=== PATIENT | female | born 1965 | race Caucasian/White ===

== ENCOUNTER 2017-06-06 20:08 | Emergency (ER) | payer OTHER ==
[2015-10-19 13:28] VITALS: BMI 28.3
[~2017-06-06 20:08] MED LIST: AMBIEN CR12.5 MG/BO PO; AMOXICILLIN500 M1 PO; ATIVAN0.5 MG PO; CARAFATE1 G PO; CYCLOBENZAPRINE10 MG PO; HALOPERIDOL1 MG PO; HYDROCODON-ACE1 EAC7 PO; JANUMET XR 1001 EACH PO; K-DUR20 MEQ PO; KEPPRA250 MG PO; LANTUS SOL100 UNIT/1 SC; METOPROLOL TART50 MG PO; MORPHINE SULFAT30 MG PO; MORPHINE SULFAT60 M5 PO; PROTONIX40 MG PO; XANAX2 MG PO; ZESTRIL20 MG PO
[2017-06-06 21:24] LABS: APPEARANCE CLEAR (CLEAR); BILIRUBIN NEGATIVE (NEGATIVE); COLOR YELLOW (YELLOW); GLUCOSE NEGATIVE (NEGATIVE); KETONE NEGATIVE (NEGATIVE); NITRITE NEGATIVE (NEGATIVE); PROTEIN NEGATIVE (NEGATIVE); UROBILINOGEN NORMAL (NORMAL)
[2017-06-06 21:31] LABS: BACTERIA FEW /hpf (NONE SEEN); EPITHELIAL CELLS 0-5 /hpf (0-5)
[2017-06-06 21:32] LABS: RED CELLS - URINE 0-5 /hpf (0-5)
[2017-06-06 21:36] LABS: BASOPHILS 0.5 % (0-2); EOSINOPHILS 4.6 % (0-7); HEMATOCRIT 36.4 % (36.0-48.0); HEMOGLOBIN 12.5 g/dL (12-16); IMMATURE GRANULOCYTES 0.2 % (0-5); LYMPHOCYTES 41.9 % (15-50); MCH 29.1 pg (26.0-34.0); MCHC 34.3 g/dL (31.0-37.0); MCV 84.8 fL (80.0-100.0); MEAN PLATELET VOLUME 9.8 fL (7.4-10.4); MONOCYTES 7.7 % (2-11); NEUTROPHILS 45.1 % (40-80); PLATELET COUNT 192 10x3/uL (130-400); RBC 4.29 10x6/uL (4.00-5.40); RDW 12.4 % (11.5-14.5); WBC 4.2 10x3/uL (4.8-10.8)
[2017-06-06 22:01] LABS: ALBUMIN 3.7 g/dL (3.4-5.0); ALKALINE PHOSPHATASE 136 U/L (46-116); ALT (SGPT) 54 U/L (10-68); AMYLASE - SERUM 25 U/L (25-115); BILIRUBIN - TOTAL 0.26 mg/dL (0.2-1.3); CALC OSMOLALITY 274 mosm/kg (275-300); CARBON DIOXIDE 31.2 mmol/L (21.0-32.0); CHLORIDE - SERUM 101 mmol/L (98-107); CREATININE - SERUM 0.8 mg/dL (0.6-1.3); LIPASE 85 U/L (73-393); POTASSIUM - SERUM 4.4 mmol/L (3.5-5.1); PROTEIN - SERUM 6.9 g/dL (6.4-8.2); SODIUM 138 mmol/L (136-145); UREA NITROGEN 9 mg/dL (7-18); eGFR NON AFRICAN AMERICAN 80 mL/min (90-120)
[2017-06-06 22:02] LABS: GLUCOSE 97 mg/dL (74-106)
[2017-06-19] MEDS ORDERED: CYCLOBENZAPRINE10 MG PO (13:08)
[2017-06-19] MEDS ORDERED: OXYCODONE HCL E20 MG PO (13:08)
[2017-06-19] MEDS ORDERED: PROPRANOLOL HCL20 MG PO (13:10)
[2017-06-19] MEDS ORDERED: XANAX2 MG PO (13:10)
[2017-06-19] MEDS ORDERED: ZANTAC300 MG PO (13:11)
[2017-06-19] MEDS ORDERED: OMEPRAZOLE20 M1 PO (13:11)
[2017-06-19] MEDS ORDERED: NOVOLOG100 U/M1 SC (13:12)
[2017-06-19] MEDS ORDERED: AMITRIPTYLINE100 MG PO (13:14)
== END 2017-06-06 23:12 | disposition home or self-care (01) ==
LOC: D.ER 20:08
PROVIDERS: Family Medicine
DX: K59.00 Constipation, unspecified (principal); N39.0 Urinary tract infection, site not specified; S29.012A Strain of muscle and tendon of back wall of thorax, initial encounter; X58.XXXA Exposure to other specified factors, initial encounter; Y93.89 Activity, other specified; Y92.019 Unspecified place in single-family (private) house as the place of occurrence of the external cause; E11.9 Type 2 diabetes mellitus without complications

== ENCOUNTER 2017-06-20 08:51 | Day surgery (SDC) | payer OTHER ==
[~2017-06-20] VITALS: Ht 154.9 cm; Wt 67.1 kg
--- NOTE | ~2017-06-20 | OP ---
PATIENT NAME: CLOVIS FRANCIS MEDICAL RECORD: [id number] :63 LOCATION:DDagobertoOPS ADMISSION DATE: SURGEON: ELMER HAWKINS MD DATE OF OPERATION: 06/20/2017 PREOPERATIVE DIAGNOSES: 1. Gallstones. 2. Diabetes mellitus. 3. Fibromyalgia. 4. Chronic pain syndrome. POSTOPERATIVE DIAGNOSES: 1. Gallstones. 2. Diabetes mellitus. 3. Fibromyalgia. 4. Chronic pain syndrome. PROCEDURE: Laparoscopic cholecystectomy. SURGEON: Elmer Hawkins MD REPORT OF PROCEDURE: The patient's abdomen was prepped and draped in sterile fashion. A skin incision was made just above the umbilicus. Electrocautery was used to dissect through the subcutaneous tissues and #0 Vicryls were placed on the fascia bilaterally. The fascia was incised with #15 blade and I bluntly entered the peritoneal cavity. A 12-mm Kemi port was inserted and the abdomen was insufflated. Under direct visualization, a 5-mm trocar was placed in the epigastrium and two more 5-mm trocars were placed in the right subcostal region. The gallbladder was grasped and elevated. There was no sign of any inflammatory changes. The cystic artery and cystic duct were dissected free and these were clipped proximally and distally and ligated in standard fashion. The gallbladder was taken off the liver bed using electrocautery and placed into the right upper quadrant. Any bleeding from the liver bed was then treated with electrocautery. We irrigated out the right upper quadrant and then a Chaparro-Cut liver biopsy tool was used to perform liver biopsies of the right lobe of liver times 4. Any bleeding from these biopsy sites were then treated with electrocautery until completed. At this point, the ports and insufflation were then removed and the gallbladder was taken out through the umbilicus. The umbilical fascia was closed with interrupted #0 Vicryls times 3. The wounds were then irrigated out with normal saline and infused with 10 mL of 0.25% Marcaine with epinephrine. The skin incisions were all closed with subcutaneous 5-0 Monocryl and dressed appropriately. COMPLICATIONS: None. CONDITION: Stable. ANESTHESIA: General endotracheal and local. BLOOD LOSS: Minimal. TRANSINT:[id number] Voice Confirmation ID: [id number] DOCUMENT ID: [id number] OPERATIVE REPORT [id number] GREEN,CLOVIS ERLINELMER KERR MD at 1413 CC: JAYMIE REBOLLEDO MD [id number] DICTATION DATE: 06/20/17 1233 SHIPPING WEIGHER: 06/20/17 1308 [facility] 06/20/17 [facility] [address] [place] [address]
[~2017-06-20 08:51] MED LIST changes: +AMITRIPTYLINE100 MG PO; +NOVOLOG100 U/M1 SC; +OMEPRAZOLE20 M1 PO; +OXYCODONE HCL E20 MG PO; +PROPRANOLOL HCL20 MG PO; +ZANTAC300 MG PO
[2017-06-20 10:27] LABS: BASOPHILS 0.6 % (0-2); EOSINOPHILS 6.6 % (0-7); HEMATOCRIT 35.5 % (36.0-48.0); HEMOGLOBIN 12.4 g/dL (12-16); IMMATURE GRANULOCYTES 1.3 % (0-5); MCH 29.2 pg (26.0-34.0); MCHC 34.9 g/dL (31.0-37.0); MCV 83.7 fL (80.0-100.0); MONOCYTES 4.1 % (2-11); NEUTROPHILS 60.4 % (40-80); RBC 4.24 10x6/uL (4.00-5.40); RDW 12.6 % (11.5-14.5)
[2017-06-20 10:28] LABS: ALBUMIN 3.8 g/dL (3.4-5.0); ALKALINE PHOSPHATASE 146 U/L (46-116); ALT (SGPT) 53 U/L (10-68); BILIRUBIN - TOTAL 0.48 mg/dL (0.2-1.3); CALC OSMOLALITY 276 mosm/kg (275-300); CALCIUM 9.3 mg/dL (8.5-10.1); CARBON DIOXIDE 26.3 mmol/L (21.0-32.0); CHLORIDE - SERUM 99 mmol/L (98-107); CREATININE - SERUM 0.8 mg/dL (0.6-1.3); PLATELET COUNT 316 10x3/uL (130-400); POTASSIUM - SERUM 4.2 mmol/L (3.5-5.1); PROTEIN - SERUM 7.3 g/dL (6.4-8.2); SODIUM 137 mmol/L (136-145); UREA NITROGEN 11 mg/dL (7-18); eGFR NON AFRICAN AMERICAN 80 mL/min (90-120)
[2017-06-20 10:30] LABS: GLUCOSE 164 mg/dL (74-106)
[2017-06-20 10:37] VITALS: BP 145/100; Ht 154.9 cm; Wt 67.1 kg
== END 2017-06-20 14:10 | disposition home or self-care (01) ==
LOC: D.OPS 08:51 → D.PAN 11:30 → D.OPS 11:30
PROVIDERS: Surgery
DX: K80.20 Calculus of gallbladder without cholecystitis without obstruction (principal); E11.9 Type 2 diabetes mellitus without complications; M79.7 Fibromyalgia; G89.4 Chronic pain syndrome; Z01.812 Encounter for preprocedural laboratory examination

== ENCOUNTER 2017-06-21 17:41 | Observation (INO) | payer OTHER ==
[~2017-06-21] VITALS: Ht 154.9 cm; Wt 65.9 kg
--- NOTE | ~2017-06-21 | DS ---
PATIENT:CLOVIS FRANCIS :63 MEDICAL RECORD: [id number] DISCHARGE SUMMARY ADMISSION DATE: 06/21/17 DISCHARGE DATE: 06/23/17 PRINCIPAL DIAGNOSES: 1. Postoperative pain. 2. Constipation. 3. Anxiety. 4. Depression. 5. Hypertension. 6. Diabetes. HOSPITAL COURSE: The patient was admitted through the Emergency Room with abdominal pain. CT scan was a pretty normal CT scan post-cholecystectomy. The patient states that she could not breathe. She states it hurts too much to breathe. When I saw her, her breathing was nonlabored. I think that her problems were more anxiety related and related to the incisional pain. She was placed on IV narcotic analgesia. On the final day, she was sleeping and so it is obvious that her pain was improved. She is being dismissed home. She can follow up with her surgeon, Dr. Hawkins in 2 weeks. TRANSINT:[id number] Voice Confirmation ID: [id number] DOCUMENT ID: [id number] WADE BANEGAS MD at 1042 CC: LOBO HAWKINS [id number] DICTATION DATE: 06/23/17 1150 SAP DIRECTOR: 06/24/17 0648 DIS IN 06/23/17 [id number] [place] [address]
--- NOTE | ~2017-06-21 | HP ---
PATIENT: CLOVIS FRANCIS MEDICAL RECORD: [id number] ACCOUNT: [id number] LOCATION:D.MS Hewitt : 63 ADMISSION DATE: 06/21/17 HISTORY AND PHYSICAL EXAMINATION CHIEF COMPLAINT: Pain. HISTORY OF PRESENT ILLNESS: The patient had me paged. She states that she could not breath and that the pain was intolerable. I asked her that she go to the Emergency Room. She underwent a CT scan. It revealed constipation and other findings consistent with a recent laparoscopic cholecystectomy. The entire examination was performed with the presence of a female nurse. Palpation of the abdomen aggravates. Nothing alleviates. The patient is very anxious. She states that the Dilaudid is not controlling her pain. I think that anxiety is as much been an issue in this case as incisional pain. I told her, I placed her on a Dilaudid HYDROELECTRIC COMPONENT MACHINIST overnight and that we could plan on sending her home tomorrow. She agreed to this. This is a history and physical addendum.For the typed portion of the history and physical, please see the chart. This will include the past medical and surgical history, current medications, allergies, social history as well as family history. PHYSICAL EXAMINATION: GENERAL: The patient appears chronically ill. Also appears acutely ill. The entire physical examination was performed in the presence of a female nurse. EARS: External ears appear normal. EYES: Extraocular movements are intact. NECK: Trachea is midline. CHEST: No intercostal retractions. PULMONARY: Nonlabored. INTEGUMENT: She has no splinting. ABDOMEN: Diffusely tender, greatest around the incisions where there is minimal amount of bruising. BACK: No thoracic kyphosis. PSYCHIATRIC: Very anxious. IMPRESSION: 1. Anxiety. 2. Incisional pain after laparoscopic cholecystectomy. 3. Constipation on the CT scan. She has had 2 bowel movements today. One was small and one was large. PLAN: Dilaudid HYDROELECTRIC COMPONENT MACHINIST. Regular diet. I am planning for dismissal home tomorrow. I will restart her home medicines including anxiety medications. TRANSINT:[id number] Voice Confirmation ID: [id number] DOCUMENT ID: [id number] HISTORY AND PHYSICAL [id number] PENNYCAROLYNCLOVIS WADE RAVI MD at 1042 CC: LOBO HAWKINS [phone] DICTATION DATE: 06/22/171915 PERIODICALS CLERK: 06/22/171932 DIS IN 06/23/17 [facility] [address] [id number]
[2017-06-21 21:28] LABS: BASOPHILS 0.3 % (0-2); EOSINOPHILS 7.3 % (0-7); HEMATOCRIT 33.3 % (36.0-48.0); HEMOGLOBIN 11.5 g/dL (12-16); IMMATURE GRANULOCYTES 0.5 % (0-5); LYMPHOCYTES 28.1 % (15-50); MCH 29.2 pg (26.0-34.0); MCHC 34.5 g/dL (31.0-37.0); MCV 84.5 fL (80.0-100.0); MEAN PLATELET VOLUME 9.5 fL (7.4-10.4); MONOCYTES 7.5 % (2-11); NEUTROPHILS 56.3 % (40-80); RBC 3.94 10x6/uL (4.00-5.40); RDW 13.1 % (11.5-14.5)
[2017-06-21 21:33] LABS: PLATELET COUNT 236 10x3/uL (130-400)
[2017-06-21 22:05] LABS: ALBUMIN 3.1 g/dL (3.4-5.0); ALKALINE PHOSPHATASE 228 U/L (46-116); ALT (SGPT) 307 U/L (10-68); CALC OSMOLALITY 275 mosm/kg (275-300); CALCIUM 7.9 mg/dL (8.5-10.1); CARBON DIOXIDE 24.7 mmol/L (21.0-32.0); CHLORIDE - SERUM 96 mmol/L (98-107); CREATININE - SERUM 0.6 mg/dL (0.6-1.3); GLUCOSE 242 mg/dL (74-106); POTASSIUM - SERUM 3.8 mmol/L (3.5-5.1); PROTEIN - SERUM 6.3 g/dL (6.4-8.2); SODIUM 135 mmol/L (136-145); UREA NITROGEN 6 mg/dL (7-18); eGFR NON AFRICAN AMERICAN > 90 mL/min (90-120)
[2017-06-22] VITALS (7 sets, daily range): BP systolic 138–179; BP diastolic 78–115; Ht 154.9 cm; Wt 65.9 kg
[2017-06-22 05:04] LABS: BASOPHILS 0.5 % (0-2); EOSINOPHILS 8.6 % (0-7); HEMATOCRIT 32.7 % (36.0-48.0); HEMOGLOBIN 11.1 g/dL (12-16); IMMATURE GRANULOCYTES 0.3 % (0-5); MCH 29.1 pg (26.0-34.0); MCHC 33.9 g/dL (31.0-37.0); MCV 85.6 fL (80.0-100.0); MEAN PLATELET VOLUME 9.7 fL (7.4-10.4); MONOCYTES 6.3 % (2-11); NEUTROPHILS 55.3 % (40-80); PLATELET COUNT 236 10x3/uL (130-400); RBC 3.82 10x6/uL (4.00-5.40); RDW 13.3 % (11.5-14.5); WBC 6.3 10x3/uL (4.8-10.8)
[2017-06-22 05:28] LABS: ALKALINE PHOSPHATASE 229 U/L (46-116); ALT (SGPT) 269 U/L (10-68); CALCIUM 8.6 mg/dL (8.5-10.1); CARBON DIOXIDE 29.4 mmol/L (21.0-32.0); CHLORIDE - SERUM 100 mmol/L (98-107); CREATININE - SERUM 0.6 mg/dL (0.6-1.3); POTASSIUM - SERUM 3.7 mmol/L (3.5-5.1); PROTEIN - SERUM 6.1 g/dL (6.4-8.2); SODIUM 138 mmol/L (136-145); eGFR NON AFRICAN AMERICAN > 90 mL/min (90-120)
[2017-06-22 05:30] LABS: CALC OSMOLALITY 277 mosm/kg (275-300); GLUCOSE 184 mg/dL (74-106); UREA NITROGEN 4 mg/dL (7-18)
[2017-06-23 05:29] VITALS: BP 159/87
[2017-06-23 08:00] VITALS: BP 162/88
[2017-06-23 11:30] VITALS: BP 160/93
== END 2017-06-23 17:12 | disposition home or self-care (01) ==
LOC: D.ER 17:41 → OBSVTIME 23:50 → D.MS 23:50
PROVIDERS: Emergency Medicine; Nurse Practitioner Family
DX: G89.18 Other acute postprocedural pain (principal); K59.00 Constipation, unspecified; F41.9 Anxiety disorder, unspecified; I10 Essential (primary) hypertension; E11.9 Type 2 diabetes mellitus without complications; F32.9 Major depressive disorder, single episode, unspecified

== ENCOUNTER → 2017-07-22 18:09 | Outpatient (CLI) | payer OTHER ==
[2017-06-22 01:05] VITALS: BMI 27.4
== END | disposition home or self-care (01) ==
LOC: D.MAMMO 07-05 14:30
DX: Z12.31 Encounter for screening mammogram for malignant neoplasm of breast (principal)

== ENCOUNTER 2017-07-26 23:53 | Emergency (ER) | payer OTHER ==
[2017-06-22 01:05] VITALS: BMI 27.4
[2017-07-27 01:25] LABS: BASOPHILS 0.2 % (0-2); EOSINOPHILS 1.5 % (0-7); HEMATOCRIT 37.5 % (36.0-48.0); IMMATURE GRANULOCYTES 0.5 % (0-5); LYMPHOCYTES 13.1 % (15-50); MCH 28.9 pg (26.0-34.0); MCHC 34.7 g/dL (31.0-37.0); MCV 83.3 fL (80.0-100.0); MEAN PLATELET VOLUME 9.8 fL (7.4-10.4); MONOCYTES 6.7 % (2-11); PLATELET COUNT 196 10x3/uL (130-400); RDW 12.5 % (11.5-14.5)
[2017-07-27 01:33] LABS: ALBUMIN 3.9 g/dL (3.4-5.0); ALKALINE PHOSPHATASE 176 U/L (46-116); ALT (SGPT) 53 U/L (10-68); BILIRUBIN - TOTAL 0.62 mg/dL (0.2-1.3); CALC OSMOLALITY 276 mosm/kg (275-300); CALCIUM 8.5 mg/dL (8.5-10.1); CARBON DIOXIDE 25.5 mmol/L (21.0-32.0); CHLORIDE - SERUM 96 mmol/L (98-107); GLUCOSE 220 mg/dL (74-106); POTASSIUM - SERUM 3.9 mmol/L (3.5-5.1); PROTEIN - SERUM 7.6 g/dL (6.4-8.2); SODIUM 135 mmol/L (136-145); UREA NITROGEN 13 mg/dL (7-18); eGFR NON AFRICAN AMERICAN 62 mL/min (90-120)
[2017-07-27 01:42] LABS: LIPASE 55 U/L (73-393); PRO BNP 206 pg/mL (0-125)
[2017-07-27 01:43] LABS: TROPONIN-I < 0.017 ng/mL (0.000-0.060)
[2017-07-27 02:18] LABS: APPEARANCE HAZY (CLEAR); BILIRUBIN NEGATIVE (NEGATIVE); COLOR DK YELLOW (YELLOW); GLUCOSE NEGATIVE (NEGATIVE); KETONE SMALL mg/dL (NEGATIVE); NITRITE NEGATIVE (NEGATIVE); PROTEIN NEGATIVE (NEGATIVE); UROBILINOGEN NORMAL (NORMAL)
[2017-07-27 02:19] LABS: BACTERIA NONE SEEN /hpf (NONE SEEN); EPITHELIAL CELLS NSEEN /hpf (0-5); MUCUS <1+ /lpf (NONE SEEN); RED CELLS - URINE NONE SEEN /hpf (0-5); WHITE CELLS - URINE 0-5 /hpf (0-5)
[2017-07-27 02:27] LABS: UDS - AMPHET NEGATIVE QUAL (NEGATIVE); UDS - BARB NEGATIVE QUAL (NEGATIVE); UDS - BENZO POSITIVE QUAL (NEGATIVE); UDS - COCAINE NEGATIVE QUAL (NEGATIVE); UDS - OPIATE POSITIVE QUAL (NEGATIVE); UDS - PCP POSITIVE QUAL (NEGATIVE); UDS - THC NEGATIVE QUAL (NEGATIVE)
== END 2017-07-27 05:31 | disposition home or self-care (01) ==
LOC: D.ER 23:53
PROVIDERS: Family Medicine
DX: J18.9 Pneumonia, unspecified organism (principal); E11.9 Type 2 diabetes mellitus without complications

== ENCOUNTER → 2018-04-14 09:54 | Outpatient (CLI) | payer OTHER ==
[2017-06-22 01:05] VITALS: BMI 27.4
== END | disposition home or self-care (01) ==
LOC: D.HCCARDIO 09:00
DX: R07.9 Chest pain, unspecified (principal)

== ENCOUNTER 2018-04-28 08:13 | Outpatient (CLI) | payer OTHER ==
[~2018-04-28] VITALS: Ht 154.9 cm; Wt 63.2 kg
--- NOTE | ~2018-04-28 | HEMODYNAMI ---
PATIENT:CLOVIS FRANCIS MEDICAL RECORD: [id number] : 63 LOCATION:[place] ADMISSION DATE: 04/28/18 Generatedon:04/28/201811:34 Patient name: CLOVIS FRANCIS Patient #: [id number] SSN: : 1965 Date of study: 04/28/2018 Page: Of Hemodynamic Procedure Report Patient Data Patient Demographics Procedure consent was obtained First Name: CLOVIS Gender: Female Last Name: PENNY : 1965 [facility] Initial: ERLIN Age: 52 year(s) Patient #: [id number] Race: Unknown Additional ID: [id number] Contact details Address: [address] [place] [address] State: [place] City[facility] Zip code: [address] Past Medical History Allergies: No known allergies Admission Admission Data Admission Date: 04/28/2018 Admission Time: 8:13 Height (in.): 61 BSA: 1.65 (m2) Height (cm.): 154.94 BMI: 27.4 (kg/m2) Weight (lbs.): 145 Weight (kg.): 65.77 Lab Results Lab Result Date: 04/28/2018 Lab Result Time: 0:00 Biochemistry Name Units Result Min Max BUN mg/dl 7 --(*---)-- 7 18 Creatinine mg/dl 0.9 --(-*--)-- 0.6 1.3 CBC Name Units Result Min Max Hemoglobin g/dl 11.1 *-(----)-- 13.5 17.5 Procedure Procedure Types Cath Procedure Diagnostic Procedure C [facility] w/Coronaries Sedation Charges Moderate Sedation up to 15 minutes Procedure Description Procedure Date Procedure Date: 04/28/2018 Procedure Start Time: 11:18 Procedure End Time: 11:33 Procedure Staff Name Function Petar Bunn MD Performing Physician Haleigh Smalls RT Monitor Roxana Delgadillo RN Nurse Delmi Cuevas RT Scrub Procedure Data Cath Procedure Fluoroscopy Diagnostic fluoroscopy Total fluoroscopy Time: 3.7 time: 3.7 min min Diagnostic fluoroscopy Total fluoroscopy dose: 226 dose: 226 mGy mGy Contrast Material Contrast Material Type Amount (ml) Isovue 300 42 Entry Location Entry Primary Successful Side Size Upsize Upsize Entry Closure Succes sful Closure Location (Fr) 1 (Fr) 2 (Fr) Remarks Device Remarks Radial Right 6 Fr artery Short Femoral Right 5 Fr Exoseal artery Estimated blood loss: 5 ml Diagnostic catheters Device Type Used For End Catheter Placement DIAGNOSTIC [place] 110cm 5 Procedure Fr catheter ([id number]) DIAGNOSTIC JL 3.5 5Fr Procedure catheter ([id number]) DIAGNOSTIC JL 3.5 5Fr Procedure catheter ([id number]) Procedure Complications No complications Procedure Medications Medication Administration Route Dosage 0.9% NaCl I.V. 100 ml/hr Oxygen etCO2 Nasal cannula 2 l/min Lidocaine 2% added to field 20 Heparin Flush Bag added to field 2 bags (1000units/500ml NS) Radial Cocktail added to field 1 syringe (Verapomil 2mg/Nitro 400mcg/Heparin 1500units) Versed I.V. 2 mg Fentanyl I.V. 50 mcg Versed I.V. 2 mg Fentanyl I.V. 50 mcg Hemodynamics Rest BSA: 1.65 (m2) HGB: 11.1 (g/dl) O2 Consumption: Estimated: 173.5 (ml/min) O2 Con sumption indexed: Estimated:105.15 (ml/min/m) Heart Rate: 92 (bpm) Snapshots Pre Cath Intra NCS Post Cath Vital Signs Time Heart Resp SPO2 etCO2 NIBP (mmHg) Rhythm Pain Sedation Rate (ipm) (%) (mmHg) Status Level (bpm) 10:52:40 94 12 99 17.4 127/90(124) NSR 0 (11) 10(A) , No pain 10:56:53 85 15 100 28.8 125/78(106) NSR 0 (11) 10(A) , No pain 11:01:09 81 11 99 37.1 122/70(92) NSR 0 (11) 10(A) , No pain 11:05:15 86 14 100 44.6 122/89(111) NSR 0 (11) 10(A) , No pain 11:09:23 86 10 100 52.2 108/85(101) NSR 0 (11) 10(A) , No pain 11:13:29 87 10 99 53 108/78(99) NSR 0 (11) 10(A) , No pain 11:17:35 89 14 99 49.2 123/78(98) NSR 0 (11) 9(A) , No pain 11:21:43 91 15 98 46.9 101/67(76) NSR 0 (11) 9(A) , No pain 11:25:46 97 12 97 49.2 111/72(98) NSR 0 (11) 9(A) , No pain 11:29:50 94 16 98 46.9 110/79(99) NSR 0 (11) 10(A) , No pain 11:33:54 93 8 97 46.9 122/84(102) NSR 0 (11) 10(A) , No pain Medications Time Medication Route Dose Verified Delivered Reason Notes E ffectiveness by by 10:52:42 0.9% NaCl I.V. 100 Petar Roxana used for ml/hr Sepideh Delgadillo pop singer 10:52:49 Oxygen etCO2 2 l/min Petar Roxana used for Nasal Sepideh Delgadillo procedure cannula RN 10:52:54 Lidocaine 2% added 20ml Petar Petar for local to vial Sepideh Bunn MD anesthetic field 10:52:58 Heparin Flush added 2 bags Petar Petar used for Bag to Sepideh Bunn MD procedure (1000units/500ml field NS) 10:53:03 Radial Cocktail added 1 Petarshalom Davey used for (Verapomil to syringe Sepideh Bunn MD procedure 2mg/Nitro field 400mcg/Heparin 1500units) 11:11:32 Versed I.V. 2 mg Petar Roxana for Sepideh Delgadillo sedation RN 11:11:46 Fentanyl I.V. 50 mcg Petar Roxana for Sepideh Delgadillo sedation RN 11:16:02 Versed I.V. 2 mg Petar Roxana for Sepideh Delgadillo sedation RN 11:16:07 Fentanyl I.V. 50 mcg Petar Roxana for Sepideh Delgadillo sedation machine tech Log Time Note 10:24:45 Time tracking: Regular hours (M-F 7:00 - 5:00) 10:24:50 Plan of Care:Hemodynamics will remain stable., Cardiac rhythm will remain stable., Comfort level will be maintained., Respiratory function will remain adequate., Patient/ family verbilizes understanding of procedure., Procedure tolerated without complication., Recovers from procedure without complications.. 10:32:10 Signed procedure consent form obtained from patient. 10:32:12 Diagnostic Cath status Elective 10:32:21 H&P Date Dictated: 04/02/2018 Within 30 days and on chart., H&P Addendum completed by physician on day of procedure. (MUST COMPLETE FOR ALL OUTPATIENTS). 10:32:42 Patient allergic to No known allergies 10:33:23 Patient Height : 61 inches 10:33:27 Patient Weight : 145 lbs 10:34:36 Delmi Counts RT(R) sent for patient. Start room use. 10:35:08 Lab Result : BUN 7 mg/dl 10:35:08 Lab Result : Hemoglobin 11.1 g/dl 10:35:08 Lab Result : Creatinine 0.9 mg/dl 10:42:33 Patient received from Pre/Post Procedure Room to CCL 1 Alert and oriented. Tansferred to table in Supine position. 10:42:50 Warm blankets applied, and richard hugger turned on for patient comfort. 10:42:50 Correct patient and procedure confirmed by team. 10:42:51 ECG and BP/O2 sat monitors applied to patient. 10:51:38 Vital chart was started 10:51:39 Full Disclosure recording started 10:52:42 0.9% NaCl 100 ml/hr I.V. was administered by Roxana Delgadillo RN; used for procedure; 10:52:49 Oxygen 2 l/min etCO2 Nasal cannula was administered by Roxana Delgadillo RN; used for procedure; 10:52:54 Lidocaine 2% 20ml vial added to field was administered by ePtar Bunn MD; for local anesthetic; 10:52:58 Heparin Flush Bag (1000units/500ml NS) 2 bags added to field was administered by Petar Bunn MD; used for procedure; 10:53:03 Radial Cocktail (Verapomil 2mg/Nitro 400mcg/Heparin 1500units) 1 syringe added to field was administered by Petar Bunn MD; used for procedure; 10:54:03 Pt arrived to CL difficult to arouse and slurring words. Ox4 upon assessment. VSS and MD notified. Will continue with moderate sedation per MD and continue to monitor. 10:54:11 Baseline sample Acquired. 10:54:15 Rhythm: sinus rhythm 10:54:18 Pre-procedure instructions explained to patient. 10:54:19 Pre-op teaching completed and patient verbalized understanding. 10:54:20 Family in patients room. 10:54:21 Patient NPO since Midnight. 10:54:24 Is patient on blood thinner?No 10:58:18 Patient diabetic? Yes. 10:58:19 If diabetic: On Metformin? Yes 10:58:22 If on Metformin: Last Dose? 04/26/2018 10:59:58 Previous problem with sedation/anesthesia? No ? 10:59:58 Snore? Yes 10:59:59 Sleep apnea? Yes 11:00:03 Deviated septum? No 11:00:04 Opens mouth fully? Yes 11:00:05 Sticks out tongue? Yes 11:00:08 Airway obstruction? No ? 11:00:17 Dentures? Yes UPPER AND LOWER IN TIGHT 11:00:22 Modified Mykel's test Ulnar < 7 seconds 11:00:24 Patient pain scale 0/10 ?. 11:00:34 IV patent on arrival in left hand with 0.9% NaCl at [facility]. 11:00:36 Lab results completed and on chart. 11:00:39 Right Radial & Right Groin area was prepped with chlora-prep and draped in sterile fashion 11:00:40 Alarms reviewed by R. N. 11:00:40 Sharps counted by scrub and verified by R.N. 11:00:44 Use device set Radial Dx or PCI 11:00:47 ACIST Syringe (90172) opened to sterile field. 11:00:49 Bag Decanter (2002S) opened to sterile field. 11:00:50 ACIST Hand Control (97388) opened to sterile field. 11:00:50 ACIST Manifold (21853) opened to sterile field. 11:00:51 Tegaderm 4 x 4 (1626W) opened to sterile field. 11:00:58 Medline Cath Pack ([id number]) opened to sterile field. 11:00:58 DIAGNOSTIC WIRE .035 260cm J wire (219005) opened to sterile field. 11:00:59 MBrace Wrist Support (103385638) opened to sterile field. 11:01:00 SHEATH 6FR Slender (82-7387) opened to sterile field. 11:05:11 Zero performed for pressure channel P1 ::42 --------ALL STOP TIME OUT------ ::42 Final Timeout: patient, procedure, and site verified with staff and physician. All members of the team are in agreement. 11:10:46 Right Radial & Right Groin site verified by team. 11:10:48 Physical assessment completed. ASA score P 2 - A patient with mild systemic disease as per Petar Bunn MD. 11:10:51 Sedation plan: IV Moderate Sedation Medication:Versed, Fentanyl 11:11:32 Versed 2 mg I.V. was administered by Roxana Delgadillo RN; for sedation; 11:11:46 Fentanyl 50 mcg I.V. was administered by Roxana Delgadillo RN; for sedation; 11:16:02 Versed 2 mg I.V. was administered by Roxana Delgadillo RN; for sedation; 11:16:07 Fentanyl 50 mcg I.V. was administered by Roxana Delgadillo RN; for sedation; 11:18:29 Procedure started. 11:18:59 Local anesthetic to right radial artery with Lidocaine 2% by Petar Bunn MD.INITIAL ACCESS ONLY 11:19:24 A 6 Fr Short sheath was inserted into the Right Radial artery 11:19:42 A DIAGNOSTIC [place] 110cm 5 Fr catheter (733940) was advanced over the wire and used for Procedure. 11:20:41 LV gram done using PRECIADO 11:20:44 Injector settings: Ml/sec: 7, Volume: 15, 11:21:09 EF : 70 % 11:21:29 RCA angiography performed. 11:22:04 Catheter exchanged over wire. 11:22:41 GUIDE 6FR XBLAD 3.5 catheter ([id number]) opened to sterile field. 11:23:46 6 Fr XBLAD 3.5 guide catheter was inserted over the wire 11:23:54 Guide Catheter removed. unable to cannulate vessel. 11:24:22 A DIAGNOSTIC JL 3.5 5Fr catheter (497906P) was advanced over the wire and used for Procedure. 11:24:59 Catheter exchanged over wire. 11:25:35 GUIDE 6FR XBC 3 (53760794) opened to sterile field. 11:25:51 6 Fr XBC 3 guide catheter was inserted over the wire 11:26:11 Guide Catheter removed. unable to cannulate vessel. 11:26:25 WILL PROCEED TO FEMORAL 11:27:19 Local anesthetic to right femoral artery with Lidocaine 2% by Petar Bunn MD.ADDITIONAL ACCESS 11:27:28 SHEATH 5FR Cullen (FTK260) opened to sterile field. 11:27:37 A 5 Fr sheath was inserted into the Right Femoral artery 11:27:58 A DIAGNOSTIC JL 3.5 5Fr catheter ([id number]) was advanced over the wire and used for Procedure. 11:29:07 LCA angiography performed. 11:29:08 Catheter removed. 11:29:14 EXOSEAL 5Fr (EX500) opened to sterile field. 11:29:16 TR BAND Standard ([id number]) opened to sterile field. 11:29:32 Sheath removed intact; hemostasis achieved with Exoseal to the Right Femoral artery. 11:30:06 Procedure ended.(Physican Out) 11:30:50 Fluoroscopy time 03.70 minutes. 11:30:55 Fluoroscopy dose: 226 mGy 11:30:55 Flurop Dose total: 226 11:31:12 Contrast amount:Isovue 300 42ml. 11:31:15 Sharps counted by scrub and verified by R.N. 11:31:17 Post-op/insertion site Right Femoral artery dressed using a 4 x 4 and Tegaderm. 11:31:23 TR band inflated with 13cc of air. 11:32:27 Post-procedure physical assessment completed. ASA score P 2 - A patient with mild systemic disease as per Petar Bunn MD. 11:32:30 Post procedure rhythm: sinus rhythm 11:32:34 Estimated blood loss: 5 ml 11:32:36 Post procedure instruction explained to patient.Patient verbalizes understanding. 11:32:37 Patient needs reinforcement of post procedure teaching. 11:32:51 Procedure type changed to Cath procedure, Diagnostic procedure, LHC, LHC w/Coronaries, Sedation Charges, Moderate Sedation up to 15 minutes 11:33:24 Procedure and supply charges have been captured, reviewed, submitted and are correct. 11:33:27 Procedure Complication : No complications 11:33:29 Vital chart was stopped 11:33:29 See physician's report for complete and final results. 11:33:31 Report given to Pre/Post Procedure Room. 11:33:33 Patient transfered to Pre/Post Procedure Room with Bed. 11:33:35 Procedure ended. 11:33:35 Full Disclosure recording stopped 11:33:38 End room use (Document Last) Device Usage Item Name Manufacture Quantity Catalog Hospital Part Current Minimal Lot# / Number Charge Number Stock Stock Serial# Code ACIST Acist 1 28572 267854 [id number] [id number] 20 Syringe Medical (93537) Systems Inc Bag Microtek 1 512793 82501 721437 5 Decanter Medical Inc. () ACIST Hand Acist 1 77175 061038 269427 757356 5 Control Medical (45992) Systems Inc ACIST Acist 1 32733 105778 562038 245241 5 Manifold Medical (11215) Systems Inc Tegaderm 4 3M 1 1626W 073313 485385 073966 5 x 4 (1626W) Medline Medline 1 [id number] 188209 63528 299602 5 Cath Pack ([id number]) DIAGNOSTIC [facility] Al[facility] 1 943906 235835 308623 854166 30 WIRE .035 260cm J wire (657980) MBrace Advanced 1 140-0250-00 515012 19066 364252 5 Wrist Vascular Support Dynamics (191939140) SHEATH 6FR Terumo 1 [id number] 404409 993490 756217 5 Slender (80-1060) DIAGNOSTIC Terumo 1 40-5013 920089 727126 952883 5 [place] 110cm 5 Fr catheter (114974) GUIDE 6FR Cardinal 1 [id number] 450797 097707 770296 10 XBLAD 3.5 Health catheter (24597769) DIAGNOSTIC Cardinal 1 [id number] 849572 045208 002820 5 JL 3.5 5Fr Health catheter (224827C) GUIDE 6FR Cardinal 1 [id number] 200454 40534 278066 5 XBC 3 Health (54471237) SHEATH 5FR Terumo 1 GCH110 943138 944219 422361 5 Cullen (QIW241) EXOSEAL 5Fr Cardinal 1 EX500 567847 389308 878548 10 (EX500) Health TR BAND Terumo 1 [id number] 462918 985551 148690 40 Standard ([id number]) Signature Audit Collins Stage Time Signature Unsigned Intra-Procedure 04/28/2018 Haleigh Smalls 11:34:44 AM RT(R) Signatures Monitor : Haleigh Smalls Signature : RT Date : Time : [address] [place] [address]
[2018-04-28] MEDS ORDERED: ZANAFLEX4 MG PO (08:56)
[2018-04-28] MEDS ORDERED: NEURONTIN 300300 MG PO (08:57)
[2018-04-28] MEDS ORDERED: CYMBALTA20 MG PO (08:58)
[2018-04-28 08:59] VITALS: BP 109/73; Ht 154.9 cm; Wt 63.2 kg
[2018-04-28 09:16] LABS: ANION GAP 11.9 mmol/L (8-16); CALCIUM 8.2 mg/dL (8.5-10.1); CARBON DIOXIDE 30.9 mmol/L (21.0-32.0); CREATININE - SERUM 0.9 mg/dL (0.6-1.3); POTASSIUM - SERUM 3.8 mmol/L (3.5-5.1)
[2018-04-28 09:46] LABS: BASOPHILS 0.6 % (0-2); EOSINOPHILS 9.5 % (0-7); HEMATOCRIT 31.9 % (36.0-48.0); HEMOGLOBIN 11.1 g/dL (12-16); IMMATURE GRANULOCYTES 0.2 % (0-5); LYMPHOCYTES 40.2 % (15-50); MCH 29.4 pg (26.0-34.0); MCHC 34.8 g/dL (31.0-37.0); MCV 84.6 fL (80.0-100.0); MEAN PLATELET VOLUME 9.8 fL (7.4-10.4); MONOCYTES 7.6 % (2-11); NEUTROPHILS 41.9 % (40-80); RBC 3.77 10x6/uL (4.00-5.40); RDW 12.6 % (11.5-14.5); WBC 5.3 10x3/uL (4.8-10.8)
[2018-04-28 09:49] LABS: PLATELET COUNT 236 10x3/uL (130-400)
--- NOTE | 2018-04-28 11:56 | NUR ---
TR BAND AND 5 FR EXOSEAL DRESSINGS ARE CDI, PULSES PALPABLE TO RIGHT HAND AND RIGHT FOOT. RESP WITH EASE ON O2 2LPM VIA NC. HOB IS FLAT, AT BEDSIDE, CALL LIGHT IN REACH.
--- NOTE | 2018-04-28 12:18 | NUR ---
TR BAND CDI, WRIST IMMOBILZER IN PLACE. FINGERS WARM AND CAP REFILL IS BRISK. 5 FR EXOSEAL IS CDI TO RIGHT GROIN, AREA IS SOFT AND NONTENDER. PEDAL PULSES PALPABLE. HOB IS FLAT, AT BEDSIDE, CALL LIGHT IN REACH.
--- NOTE | 2018-04-28 12:57 | NUR ---
1235 3 CC OF AIR WEANED FROM TR BAND WITH NO BLEEDING NOTED. FINGERS WARM AND CAP REFILL IS BRISK. 5 FR EXOSEAL IS CDI TO RIGHT GROIN, PEDAL PULSES PALPABLE. 1250 4 CC OF AIR WEANED FROM TR BAND WITH NO BLEEDING NOTED.
--- NOTE | 2018-04-28 13:06 | NUR ---
3 CC OF AIR WEANED FROM TR BAND WITH NO BLEEDING NOTED. FINGERS WARM AND CAP REFILL IS BRISK. DRESSING TO RIGHT GROIN IS CDI. HOB ELEVATED 30 DEGREES AND SANDWICH/ PO FLUIDS SERVED. AT BEDSIDE.
--- NOTE | 2018-04-28 13:18 | NUR ---
3 CC OF AIR WEANED FROM TR BAND WITH NO BLEEDING NOTED. FINGERS WARM AND CAP REFILL IS BRISK. HOB FULLY ELEVATED, DRESSING CDI TO RIGHT GROIN.
--- NOTE | 2018-04-28 13:41 | NUR ---
TR BAND REMOVED AND 2X2, TEGADERM PLACED TO SITE, PULSES PALPABLE. DRESSING TO RIGHT GROIN IS CDI. PT EATING SANDWICH WITH NO C/O NAUSEA. DC INSTRUCTIONS REVIEWED WITH PT AND WHO VERBALIZE UNDERSTANDING.
--- NOTE | 2018-04-28 13:55 | NUR ---
PT HAS TOLERATED SANDWICH WITH NO C/O NAUSEA. IV DC'D WITH CATH INTACT. PT DRESSING FOR DC WITH ASSIST. DRESSING TO RIGHT GROIN AND RIGHT WRIST ARE CDI.
--- NOTE | 2018-04-28 14:05 | NUR ---
PT HAS DRESSED FOR DC WITH ASSIST. DENIES ANY C/O. HAS ALL PERSONAL BELONGINGS AND DC INSTRUCTIONS. PT ESCORTED TO PRIVATE AUTO VIA WC BY NURSE WITH DRIVING HER HOME.
--- NOTE | 2018-04-29 10:23 | OP ---
PATIENT NAME: CLOVIS FRANCIS MEDICAL RECORD: [id number] :63 LOCATION:D.CAT ADMISSION DATE: SURGEON: FILIBERTO PÉREZ MD DATE OF OPERATION: 04/28/2018 PROCEDURES: 1. Left heart catheterization. 2. Selective coronary angiography. 3. Left ventriculogram. INDICATION: Angina and coronary artery disease. PROCEDURE PERFORMED: After informed consent was obtained and after a detailed description of risks, benefits as well as alternative therapies, the patient elected to proceed with angiogram and heart catheterization. The right femoral area was prepped and draped in normal sterile fashion. Right femoral artery was cannulated via modified Seldinger technique with placement of 5-Danish sheath. All catheters exchanged through this sheath. FINDINGS: The left ventriculogram was performed in standard 30-degree PRECIADO view, reveals good cardiac wall motion throughout all segments. Overall ejection fraction estimated 60%. SELECTIVE CORONARY ANGIOGRAPHY: Left main, left anterior descending, left circumflex, right coronary artery are all smooth-walled vessels with no angiographic evidence of coronary artery disease. OVERALL IMPRESSION: 1. No angiographic evidence of coronary artery disease. 2. Normal left heart pressures. 3. Normal left ventricular systolic function. Chest pain is noncardiac in etiology. No further cardiac workup needs to be ascertained. TRANSINT:[id number] Voice Confirmation ID: [id number] DOCUMENT ID: [id number] FILIBERTO PÉREZ MD at 1023 CC: [id number] DICTATION DATE: 04/28/18 1132 EVENT DECORATOR: 04/28/18 1259 DEP CLI 04/28/18 [address] [address] [id number] [place] [id number]
== END 2018-04-28 14:05 | disposition home or self-care (01) ==
LOC: D.CATH 08:13
PROVIDERS: Internal Medicine Interventional Cardiology
DX: R07.9 Chest pain, unspecified (principal); I25.10 Atherosclerotic heart disease of native coronary artery without angina pectoris

== ENCOUNTER → 2018-05-05 07:42 | Outpatient (CLI) | payer OTHER ==
[2018-04-28 08:59] VITALS: BMI 26.3
[~2018-05-05 07:42] MED LIST changes: +CYMBALTA20 MG PO; +NEURONTIN 300300 MG PO; +ZANAFLEX4 MG PO
== END | disposition home or self-care (01) ==
LOC: D.MRI 07:42
DX: H53.9 Unspecified visual disturbance (principal)

== ENCOUNTER 2018-06-20 18:00 | Emergency (ER) | payer OTHER ==
[~2018-06-20] VITALS: Ht 154.9 cm; Wt 68.2 kg
[2018-06-20 18:08] VITALS: Ht 154.9 cm; Wt 68.2 kg
[2018-06-20 18:40] LABS: BASOPHILS 0.3 % (0-2); EOSINOPHILS 2.8 % (0-7); HEMATOCRIT 39.1 % (36.0-48.0); IMMATURE GRANULOCYTES 0.3 % (0-5); LYMPHOCYTES 13.3 % (15-50); MCH 29.2 pg (26.0-34.0); MCHC 35.8 g/dL (31.0-37.0); MCV 81.5 fL (80.0-100.0); MEAN PLATELET VOLUME 9.7 fL (7.4-10.4); NEUTROPHILS 78.3 % (40-80); PLATELET COUNT 254 10x3/uL (130-400); RDW 12.6 % (11.5-14.5)
[2018-06-20 18:58] LABS: ALBUMIN 4.6 g/dL (3.4-5.0); ALKALINE PHOSPHATASE 122 U/L (46-116); ALT (SGPT) 32 U/L (10-68); BILIRUBIN - TOTAL 0.25 mg/dL (0.2-1.3); CALC OSMOLALITY 278 mosm/kg (275-300); CALCIUM 9.3 mg/dL (8.5-10.1); CHLORIDE - SERUM 102 mmol/L (98-107); GLUCOSE 75 mg/dL (74-106); POTASSIUM - SERUM 4.3 mmol/L (3.5-5.1); PROTEIN - SERUM 8.1 g/dL (6.4-8.2); SODIUM 141 mmol/L (136-145); UREA NITROGEN 9 mg/dL (7-18); eGFR NON AFRICAN AMERICAN 61 mL/min (90-120)
[2018-06-20 19:04] LABS: AMYLASE - SERUM 60 U/L (25-115); LIPASE 108 U/L (73-393)
[2018-06-20 19:05] LABS: TROPONIN-I < 0.017 ng/mL (0.000-0.060)
[2018-06-20 22:05] LABS: UDS - AMPHET NEGATIVE QUAL (NEGATIVE); UDS - BARB NEGATIVE QUAL (NEGATIVE); UDS - BENZO POSITIVE QUAL (NEGATIVE); UDS - COCAINE NEGATIVE QUAL (NEGATIVE); UDS - OPIATE POSITIVE QUAL (NEGATIVE); UDS - PCP NEGATIVE QUAL (NEGATIVE); UDS - THC POSITIVE QUAL (NEGATIVE)
[2018-06-20 22:23] LABS: APPEARANCE CLEAR (CLEAR); BILIRUBIN NEGATIVE (NEGATIVE); COLOR YELLOW (YELLOW); GLUCOSE NEGATIVE (NEGATIVE); KETONE NEGATIVE (NEGATIVE); NITRITE NEGATIVE (NEGATIVE); PROTEIN NEGATIVE (NEGATIVE); SPECIFIC GRAVITY 1.015 (1.005-1.020); UROBILINOGEN NORMAL (NORMAL)
[2018-06-20 23:15] VITALS: BP 124/71
== END 2018-06-20 23:15 | disposition home or self-care (01) ==
LOC: D.ER 18:00
PROVIDERS: Family Medicine
DX: E11.9 Type 2 diabetes mellitus without complications (principal); Z79.4 Long term (current) use of insulin; K59.00 Constipation, unspecified; R10.13 Epigastric pain

== ENCOUNTER → 2019-04-20 13:05 | Outpatient (CLI) | payer OTHER ==
[2018-06-20 18:08] VITALS: BMI 28.4
[2019-04-20 13:53] LABS: BASOPHILS 0.5 % (0-2); EOSINOPHILS 9.6 % (0-7); HEMATOCRIT 42.7 % (36.0-48.0); HEMOGLOBIN 13.9 g/dL (12-16); IMMATURE GRANULOCYTES 0.3 % (0-5); MCH 25.7 pg (26.0-34.0); MCHC 32.6 g/dL (31.0-37.0); MCV 78.9 fL (80.0-100.0); MEAN PLATELET VOLUME 10.1 fL (7.4-10.4); MONOCYTES 5.9 % (2-11); NEUTROPHILS 57.7 % (40-80); PLATELET COUNT 206 10x3/uL (130-400); RBC 5.41 10x6/uL (4.00-5.40); RDW 15.6 % (11.5-14.5); WBC 6.6 10x3/uL (4.8-10.8)
[2019-04-20 14:45] LABS: ALBUMIN 4.2 g/dL (3.4-5.0); ALKALINE PHOSPHATASE 120 U/L (46-116); ALT (SGPT) 17 U/L (10-68); BILIRUBIN - TOTAL 0.19 mg/dL (0.2-1.3); CALC OSMOLALITY 285 mosm/kg (275-300); CALCIUM 9.2 mg/dL (8.5-10.1); CARBON DIOXIDE 25.2 mmol/L (21.0-32.0); CHLORIDE - SERUM 107 mmol/L (98-107); CHOL - HDL RATIO 4.5 ratio (2.3-4.1); CHOLESTEROL, TOTAL 208 mg/dL (0-200); CREATININE - SERUM 0.8 mg/dL (0.6-1.3); GLUCOSE 92 mg/dL (74-106); HDL CHOLESTEROL 46 mg/dL (32-96); LDL CHOLESTEROL 138 mg/dL (0-100); POTASSIUM - SERUM 4.5 mmol/L (3.5-5.1); SODIUM 143 mmol/L (136-145); THYROID STIMULATING HORMONE 1.31 uIU/mL (0.36-3.74); TRIGLYCERIDE 123 mg/dL (30-200); UREA NITROGEN 15 mg/dL (7-18); eGFR NON AFRICAN AMERICAN 79 mL/min (90-120)
== END | disposition home or self-care (01) ==
LOC: D.LAB 13:05
PROVIDERS: ATTEND Family Medicine
DX: E11.9 Type 2 diabetes mellitus without complications (principal)

== ENCOUNTER 2019-12-13 06:52 | Emergency (ER) | payer OTHER ==
[~2019-12-13] VITALS: Ht 154.9 cm; Wt 72.7 kg
[2019-12-13 06:54] VITALS: Ht 154.9 cm; Wt 72.7 kg
[2019-12-13] MEDS ORDERED: LYRICA225 MG PO (06:58)
[2019-12-13 07:06] LABS: BASOPHILS 0.1 % (0-2); EOSINOPHILS 3.6 % (0-7); HEMATOCRIT 37.5 % (36.0-48.0); HEMOGLOBIN 12.8 g/dL (12-16); IMMATURE GRANULOCYTES 0.7 % (0-5); LYMPHOCYTES 12.2 % (15-50); MCHC 34.1 g/dL (31.0-37.0); MCV 82.1 fL (80.0-100.0); MEAN PLATELET VOLUME 11.1 fL (7.4-10.4); MONOCYTES 7.8 % (2-11); NEUTROPHILS 75.6 % (40-80); RBC 4.57 10x6/uL (4.00-5.40); RDW 13.6 % (11.5-14.5); WBC 7.2 10x3/uL (4.8-10.8)
[2019-12-13 07:07] LABS: PLATELET COUNT 133 10x3/uL (130-400)
[2019-12-13 07:20] LABS: CALC OSMOLALITY 270 mosm/kg (275-300); CALCIUM 9.6 mg/dL (8.5-10.1); CARBON DIOXIDE 24.6 mmol/L (21.0-32.0); CHLORIDE - SERUM 96 mmol/L (98-107); CREATININE - SERUM 0.8 mg/dL (0.6-1.3); GLUCOSE 214 mg/dL (74-106); SODIUM 133 mmol/L (136-145); UREA NITROGEN 10 mg/dL (7-18); eGFR NON AFRICAN AMERICAN 79 mL/min (90-120)
[2019-12-13 07:31] LABS: ALBUMIN 3.3 g/dL (3.4-5.0); ALKALINE PHOSPHATASE 595 U/L (30-120); ALT (SGPT) 368 U/L (10-68); BILIRUBIN - TOTAL 5.77 mg/dL (0.2-1.3); C-REACTIVE PROTEIN 16.9 mg/dL (0.0-0.9); MAGNESIUM - SERUM 1.3 mg/dL (1.8-2.4); PRO BNP 220 pg/mL (0-125); PROTEIN - SERUM 8.2 g/dL (6.4-8.2); THYROID STIMULATING HORMONE 0.61 uIU/mL (0.36-3.74)
[2019-12-13 07:32] LABS: TROPONIN-I < 0.017 ng/mL (0.000-0.060)
[2019-12-13 08:08] LABS: UDS - AMPHET NEGATIVE QUAL (NEGATIVE); UDS - BARB NEGATIVE QUAL (NEGATIVE); UDS - BENZO POSITIVE QUAL (NEGATIVE); UDS - COCAINE NEGATIVE QUAL (NEGATIVE); UDS - OPIATE POSITIVE QUAL (NEGATIVE); UDS - PCP NEGATIVE QUAL (NEGATIVE); UDS - THC NEGATIVE QUAL (NEGATIVE)
[2019-12-13 08:19] LABS: KETONE NEGATIVE (NEGATIVE); NITRITE NEGATIVE (NEGATIVE); UROBILINOGEN NORMAL (NORMAL)
[2019-12-13 08:20] LABS: BACTERIA FEW /hpf (NONE SEEN); BILIRUBIN NEGATIVE (NEGATIVE); EPITHELIAL CELLS 0-5 /hpf (0-5); RED CELLS - URINE 0-5 /hpf (0-5); WHITE CELLS - URINE 0-5 /hpf (0-5)
[2019-12-13 10:48] VITALS: BP 136/72
== END 2019-12-13 10:50 | disposition short-term general hospital (02) ==
LOC: D.ER 06:52
PROVIDERS: Family Medicine
DX: R51 Headache (principal); R94.5 Abnormal results of liver function studies; E80.6 Other disorders of bilirubin metabolism; H53.149 Visual discomfort, unspecified; E11.9 Type 2 diabetes mellitus without complications; J44.9 Chronic obstructive pulmonary disease, unspecified; Z79.84 Long term (current) use of oral hypoglycemic drugs; M54.6 Pain in thoracic spine